=== PATIENT | female | born 1960 ===

== ENCOUNTER 2017-02-20 12:05 | Emergency (ER) | payer OTHER ==
[2017-02-20 12:13] VITALS: BMI 31.1
[2017-02-20 12:14] VITALS: BP 124/70; PULSE 84; RESP 17; TEMP 98.5; O2SAT 98
--- NOTE | 2017-02-20 13:13 | ED PDOC ---
Lower Extremity Pain/Injury Time Seen by Provider: 02/20/17 12:17 Chief Complaint (Nursing): Lower Extremity Problem/Injury Chief Complaint (Provider): Right knee pain History Per: Patient History/Exam Limitations: no limitations Onset/Duration Of Symptoms: Days (x 2 weeks) Current Symptoms Are (Timing): Still Present Additional Complaint(s): Kathy is a 56 y/o female who presents to the ED complaining of right knee pain for 2 weeks. She was initially seen at [facility] on 02/12 and states X-Ray was normal. Patient was instructed to follow up with Orthopedist but cannot get an appointment. Taking Motrin, which she states is helping with the inflammation but not with the pain. Denies any direct injury or trauma to the area. PMD: Provider KANIKA Past Medical History Reviewed: Historical Data, Nursing Documentation, Vital Signs Vital Signs: Last Vital Signs Temp 98.5 F 02/20/17 12:13 Pulse 84 02/20/17 12:13 Resp 17 02/20/17 12:13 BP 124/70 02/20/17 12:13 Pulse Ox 98 02/20/17 12:13 - Surgical History Surgical History: Other surgeries: Nasal surgery - Family History Family History: States: Unknown Family Hx - Social History Current smoker - smoking cessation education provided: No Alcohol: None Drugs: Denies - Immunization History Hx Tetanus Toxoid Vaccination: No Hx Influenza Vaccination: No Hx Pneumococcal Vaccination: No - Home Medications Home Medications: Ambulatory Orders Medication Instructions Recorded Ibuprofen [Motrin] 600 mg PO PRN PRN 02/12/17 Ibuprofen [Motrin] 600 mg PO TID #30 tab 02/12/17 traMADol [Ultram] 50 mg PO Q6H PRN #15 tab 02/20/17 - Allergies Allergies/Adverse Reactions: Allergies Allergy/AdvReac Type Severity Reaction Status Date / Time No Known Allergies Allergy Verified 02/12/17 16:50 Review of Systems ROS Statement: Except As Marked, All Systems Reviewed And Found Negative Musculoskeletal: Positive for: Leg Pain (Right knee pain) Physical Exam - Reviewed Nursing Documentation Reviewed: Yes Vital Signs Reviewed: Yes - Physical Exam Appears: Positive for: Well, Non-toxic, No Acute Distress Head Exam: Positive for: ATRAUMATIC, NORMAL INSPECTION, NORMOCEPHALIC Skin: Positive for: Normal Color, Warm, Dry Eye Exam: Positive for: Normal appearance Neck: Positive for: Normal Respiratory: Negative for: Respiratory Distress Pulses-Dorsalis Pedis (L): 2+ Pulses-Dorsalis Pedis (R): 2+ Extremity: Positive for: Tenderness (At the anterior proximal tibia), Capillary Refill (< 2 sec), Other (Decreased flexion at the knee due to pain). Negative for: Normal ROM, Swelling Neurologic/Psych: Positive for: Alert, Oriented - ECG O2 Sat by Pulse Oximetry: 98 (RA) Pulse Ox Interpretation: Normal Medical Decision Making Medical Decision Making: Time: 12:54 Initial Plan: --Given Tramadol 50 mg PO Clinical Impression: Right knee pain Upon provider evaluation patient is medically stable, and requires no further treatment in the ED at this time. Patient will be discharged home. Counseling was provided and all questions were answered regarding diagnosis and need for follow up with Orthopedist. There is agreement to discharge plan. Return if symptoms persist or worsen. Scribe Attestation: Documented by Rosamaria Stevenson, acting as a scribe for Sylvia Lin PA-C Provider Scribe Attestation: All medical record entries made by the Scribe were at my direction and personally dictated by me. I have reviewed the chart and agree that the record accurately reflects my personal performance of the history, physical exam, medical decision making, and the department course for this patient. I have also personally directed, reviewed, and agree with the discharge instructions and disposition. Disposition - Clinical Impression Clinical Impression: Knee pain, right - Patient ED Disposition Is Patient to be Admitted: No Counseled Patient/Family Regarding: Diagnosis, Need For Followup, Rx Given - Disposition Referrals: [facility] [Outside] Ag Jackson III, MD [Staff Provider] - Disposition: Routine/Home Disposition Time: 13:29 Condition: STABLE Prescriptions: traMADol [Ultram] 50 mg PO Q6H PRN #15 tab PRN Reason: Pain Instructions: Knee Pain (ED) Forms: [facility] (Yi) Print Language: SAMI
== END 2017-02-20 13:47 | disposition home or self-care (01) ==
LOC: H.ER 12:05
DX: M25.561 Pain in right knee (principal)